=== PATIENT | male | born 1980 | race Caucasian/White ===

== ENCOUNTER → 2019-05-15 16:21 | Outpatient (BNVA) | payer BC, SELFPAY | PROVIDERS: Family Provider Family Medicine; Visit Provider Emergency Medicine | DX: J10.1 Influenza due to other identified influenza virus with other respiratory manifestations (principal) | CPT/HCPCS: 87804 ==

== ENCOUNTER 2022-08-15 13:28 | Outpatient (CLI) | payer OTHER, SELFPAY ==
--- NOTE | 2022-08-15 13:54 | XR_ITS ---
WS: [id number] CERVICAL SPINE 3 VIEWS HISTORY: NECK PAIN, CHRONIC COMPARISON: None available. Normal cervical alignment with no fracture or destructive process. Disc spaces and vertebral body heights are well-maintained. Small calcification in the posterior soft tissues at the C5 level. XR/XR cervical spine 3V* [id number] IMPRESSION: Unremarkable cervical spine radiographs. No fractures or disc space narrowing.
--- NOTE | 2022-08-15 16:10 | XR_ITS ---
WS: [id number] LUMBAR SPINE: 3 VIEWS TECHNIQUE: AP, lateral and L5-S1 spot. HISTORY: COCCYX PAIN COMPARISON: None available. Very mild LEFT curvature lumbar spine. Posterior alignment is normal. Disc space are preserved. No fracture. SI joints are symmetric bilaterally. No soft tissue abnormalities. XR/XR lumbar spine 2-3V* [id number] IMPRESSION: 1. Minimal curvature lumbar spine to the LEFT. 2. No fractures or significant disc space narrowing.
== END 2022-08-15 13:29 | disposition home or self-care (01) ==
PROVIDERS: Family Provider Family Medicine; PCP Nurse Practitioner Family; Visit Provider Nurse Practitioner Family
DX: M53.3 Sacrococcygeal disorders, not elsewhere classified (principal); M54.9 Dorsalgia, unspecified; M54.2 Cervicalgia; G89.29 Other chronic pain
CPT/HCPCS: 72040; 72100

== ENCOUNTER → 2022-08-17 11:55 | Outpatient (BNVA) | payer OTHER, SELFPAY | PROVIDERS: Family Provider Family Medicine; PCP Nurse Practitioner Family; Visit Provider Nurse Practitioner Family | DX: M53.3 Sacrococcygeal disorders, not elsewhere classified (principal) | CPT/HCPCS: 72220 ==

== ENCOUNTER 2023-05-23 12:21 | Emergency (ER) | payer BC, SELFPAY ==
--- NOTE | 2023-05-23 12:27 | XR_ITS ---
WS: [id number] Exam: XR chest 1V portable [id number] Date/Time of Exam: 05/23/2023 12:47 PM Reason For Exam: sob No priors. Findings: The lungs are clear and fully expanded. Costophrenic angles are sharp. No infiltrates. Bronchovascula r relief appears normal. Cardiac silhouette is unremarkable. Bony elements are intact. IMPRESSION: Unremarkable chest radiograph.
--- NOTE | 2023-05-23 12:27 | ECG_ITS ---
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 Measurements Intervals [place] Rate: 87 P: 61 CA: 116 QRS: 51 QRSD: 85 T: 44 QT: 356 QTc: 430 Interpretive Statements SINUS RHYTHM WITH SHORT CA INTERVAL No previous ECG available for comparison Electronically Signed On 05-23-2023 16:02:42 WEB ADMINISTRATOR by Bandar Duran M.D. [id number]
[2023-05-23 12:35] VITALS: BP 139/80; PULSE 84; RESP 18; TEMP 36.7; O2SAT 99; BMI 26.4
--- NOTE | 2023-05-23 12:42 | ED_ITS ---
HPI - Chest Pain 2 General: Chief Complaint: Chest Pain Stated Complaint: sent by dr chest pain, sob Time Seen by Provider: 05/23/23 12:40 Source: patient Mode of arrival: ambulatory History of Present Illness: 42-year-old male presents emergency room with a complaint of intermittent chest pain for last 2 weeks worse this morning. Chest pain at times radiates into the left arm. He is having spasm like discomfort. No vomiting no diarrhea no hemoptysis no hematochezia melena hematemesis cough cramps no fever sweats or chills. patient denies any history of coronary artery disease DVT or PE. Patient states it actually gets better when he is active MD complaint: chest pain Onset (ago): week(s) Timing of current episode: episodic Onset: during rest Pain location: substernal Pain radiation: left arm Severity: mild Quality: sharp Relieving factors: nothing Exacerbating factors: nothing Associated symptoms: Deny abdominal pain, diaphoresis, dyspnea, fever(s), leg edema, nausea, palpitations, sense of impending doom, syncope, vomiting or other Review of Systems 2 Const: Denies: fever(s) or diaphoresis Card: Reports: chest pain; Denies: palpitations or syncope Resp: Denies: dyspnea GI: Denies: abdominal pain, nausea or vomiting : Denies: dysuria, urinary frequency or urinary urgency Musc: Denies: neck pain or back pain Skin/Breast: Denies: rash PFSH ED 2 PFSH: Family History Denies family history of Diabetes Social History Smoking and tobacco/nicotine status: current every day tobacco/nicotine user smokeless tobacco Alcohol intake: current Substance/Drug Use: never Physical Exam 2 Const: COMMON NORMALS: no acute distress GENERAL APPEARANCE: cooperative and comfortable ORIENTATION/CONSCIOUSNESS: Yes awake, Yes oriented to person, Yes oriented to place and Yes oriented to time HENMT: COMMON NORMALS: normocephalic, atraumatic and hearing grossly normal bilaterally HEAD & SCALP: normocephalic and atraumatic Resp: COMMON NORMALS: normal respiratory effort, No retractions, No use of accessory muscles and clear to auscultation bilaterally AUSCULTATION: clear to auscultation bilaterally Cardio: COMMON NORMALS: regular rate, regular rhythm and No murmurs present (Cardio) RATE: regular rate RHYTHM: regular rhythm GI: COMMON NORMALS: Soft to palpation and No hepatosplenomegaly present A USCULTATION: Yes normoactive bowel sounds PALPATION: Yes Soft to palpation, No Tenderness to palpation present (GI), No Guarding due to palpation present (GI) and Yes No hepatosplenomegaly present Extremity: COMMON NORMALS: normal to inspection, capillary refill normal, no clubbing, cyanosis or edema, no calf tenderness and no pedal edema Neuro: SENSORIUM/ORIENTATION: Yes oriented to person, Yes oriented to place and Yes oriented to time Skin: COMMON NORMALS: no rashes or lesions noted GENERAL SKIN EXAM: no rashes or lesions noted Course 2 Vital Signs: Vital signs: Vital Signs Temperature 98.1 F 05/23/23 12:35 Pulse Rate 79 05/23/23 14:49 Respiratory Rate 18 05/23/23 12:35 Blood Pressure 118/83 05/23/23 14:49 Pulse Oximetry 94 05/23/23 14:49 Oxygen Delivery Me thod Room Air 05/23/23 14:49 MDM - Chest Pain Medical Decision Making D-dimer negative, patient oxygenating well no tachycardia chest x-ray unremarkable. Reviewed findings with the patient. No acute coronary syndrome no signs of pneumothorax PE no widening the mediastinum suggesting dissecting aneurysm. His liver enzymes are slightly elevated and he does have a bit of an anion gap although he feels fine he is actually hungry he is given fluids is feeling much better symptoms are resolved. He did state he drinks alcohol. This may be related to alcohol use especially given the anion gap although his platelets and sodium are normal. It is also possible is just reflux. He otherwise has no symptoms at this time will discharge home with graded exercise stress test and pantoprazole follow-up with primary care Medical Records I reviewed the patient's medical records. Lab Data I reviewed the patient's lab results. 05/23/23 12:44 05/23/23 12:44 Laboratory Results WBC 5.17 10^3/uL (3.29-11.43) 05/23/23 12:44 RBC 4.30 10^6/uL (3.85-5.65) 05/23/23 12:44 Hgb 14.60 g/dL (11.27-16.99) 05/23/23 12:44 Hct 43.1 % (37-53) 05/23/23 12:44 MCV 100.2 fl (82-101) 05/23/23 12:44 MCH 34.0 pg (27-33) H 05/23/23 12:44 MCHC 33.9 g/dL (30-55) 05/23/23 12:44 RDW 12.6 % (12.1-15.1) 05/23/23 12:44 Plt Count 156 10^3/cmm (157-399) L 05/23/23 12:44 MPV 8.4 fL (7.4-10.4) 05/23/23 12:44 Neut % (Auto) 62.2 % 05/23/23 12:44 Lymph % (Auto) 22.4 % 05/23/23 12:44 Davidson % (Auto) 12.2 % 05/23/23 12:44 Eos % (Auto) 1.4 % 05/23/23 12:44 Baso % (Auto) 1.4 % 05/23/23 12:44 Neut # (Auto) 3.22 10^3/uL (1.8-7.7) 05/23/23 12:44 Lymph # (Auto) 1.2 10^3/uL (0.8-4.8) 05/23/23 12:44 Davidson # (Auto) 0.6 10^3/uL (0.2-0.9) 05/23/23 12:44 Eos # (Auto) 0.1 10^3/uL (0.0-0.8) 05/23/23 12:44 Baso # (Auto) 0.1 10^3/uL (0.0-0.1) 05/23/23 12:44 Nucleated RBC % (auto) 0 % 05/23/23 12:44 Nucleated RBCs # 0.0 /100WBC 05/23/23 12:44 PT 12.40 SECONDS (12.1-14.9) 05/23/23 12:44 INR 0.90 (0.8-1.2) 05/23/23 12:44 D-Dimer 0.30 ug/mLFEU (0-0.59) 05/23/23 12:44 Sodium 139 mmol/L (136-145) 05/23/23 12:44 Potassium 4.2 mmol/L (3.5-5.1) 05/23/23 12:44 Chloride 97 mmol/L (98-107) L 05/23/23 12:44 Carbon Dioxide 21 mmol/L (22-29) L 05/23/23 12:44 Anion Gap 25.2 (5-19) H 05/23/23 12:44 BUN 9 mg/dL (6-20) 05/23/23 12:44 Creatinine 0.7 mg/dL (0.7-1.2) 05/23/23 12:44 GFR Calculation 123.7 mL/min (90-130) 05/23/23 12:44 Glucose 72 mg/dL (65-115) 05/23/23 12:44 Calculated Osmolality 285 mOsm/kg (285-295) 05/23/23 12:44 Calcium 9.2 mg/dL (8.5-10.5) 05/23/23 12:44 Total Bilirubin 0.7 mg/dL (0.15-1.2) 05/23/23 12:44 AST 181 U/L (0-40) H 05/23/23 12:44 ALT 62 U/L (0-41) H 05/23/23 12:44 Alkaline Phosphatase 63 U/L (40-130) 05/23/23 12:44 Troponin T Baseline < 6 ng/L (0-15) 05/23/23 12:44 Troponin T 120 Minute 6.00 ng/L (0-15) 05/23/23 14:34 Delta Troponin T 0.42134 ABS# (0-10) 05/23/23 14:34 NT-Pro-B Natriuret Pep 46 pg/mL (0-125) 05/23/23 12:44 Total Protein 7.2 g/dL (6.6-8.7) 05/23/23 12:44 Albumin 4.6 g/dL (3.5-5.2) 05/23/23 12:44 Globulin 2.6 g/dL (1.3-4.6) 05/23/23 12:44 Lipase 16 U/L (13-60) 05/23/23 12:44 All radiology interpretation(s) finalized by discharge Discharge Plan Discharge Patient Disposition: Home Clinical Impression: Atypical chest pain Condition: Stable Prescriptions: New pantoprazole 40 mg tablet,delayed release (DR/EC) 40 mg PO DAILY Qty: 30 0RF No Action gabapentin 300 mg capsule 300 mg PO QPM Discharge Orders: Discharge ED (Routine); Ordered 05/23/23 Ordered By: Zhao Mathew Referrals: Inés Zapata, DIGITAL PROJECT MANAGER [Primary Care Provider] - Discharge Diet: Usual diet Discharge Activity: Increase activity as tolerated Patient Instructions: Opioid Safety, Pain Management Activity Restrictions/Additional Instructions: Thank you for choosing [facility] for your healthcare needs today. Please realize this is an emergency room and that we are providing you with a medical screening exam and this may not be complete and all inclusive of all the testing and or work up that you may need to determine your ailment or severity of your illness. It is very important that you follow up as instructed or that you return to the Emergency Department should you have concerns or if your condition changes or worsens in any way. You were seen today for chest pain. By the history provided this been going on for some time. Your cardiac enzymes and EKG did not show any signs of acute coronary syndrome. D-dimer was done it was negative ruling out pulmonary embolism. Your chest x-ray appears normal. Suspect some of this may be due to to GI causes. Will start you on pantoprazole 40 mg once a day and also recommend that you have a graded exercise stress test. case management will call to schedule this. Coding Level of Care Code ED Facilities Custodian for Rojeloi Cabrera
[2023-05-23 12:52] LABS: Basophils # 0.1 10^3/uL (0.0-0.1); Basophils % 1.4 %; Eosinophils # 0.1 10^3/uL (0.0-0.8); Eosinophils % 1.4 %; Hematocrit 43.1 % (37-53); Lymphocytes # 1.2 10^3/uL (0.8-4.8); Lymphocytes % 22.4 %; Mean Corpuscular HGB Conc 33.9 g/dL (30-55); Mean Corpuscular Volume 100.2 fl (82-101); Mean Platelet Volume 8.4 fL (7.4-10.4); Monocytes # 0.6 10^3/uL (0.2-0.9); Monocytes % 12.2 %; Neutrophils # 3.22 10^3/uL (1.8-7.7); Neutrophils % 62.2 %; Nucleated Red Blood Cells % 0 %; Platelet Count 156 10^3/cmm (157-399); Red Cell Distribution Width 12.6 % (12.1-15.1); White Blood Count 5.17 10^3/uL (3.29-11.43)
[2023-05-23 13:02] VITALS: BP 117/78; PULSE 82; O2SAT 98
--- NOTE | 2023-05-23 13:07 | ECG_ITS ---
[facility] Test Date: 2023-05-23 Pat Name: Joshua Panchal Department: Room: Gender: Male Human Resource Manager: : 1980 Requested By: Zhao Lama Order Number: [id number] Mirtha MD: Bandar Duran M.D. Measurements Intervals [place] Rate: 82 P: 52 ID: 143 QRS: 57 QRSD: 88 T: 48 QT: 367 QTc: 431 Interpretive Statements SINUS RHYTHM Compared to ECG 05/23/2023 12:28:38 Short ID interval no longer present Electronically Signed On 05-23-2023 16:02:29 COMMERCIAL ACCOUNT OFFICER by Bandar Duran M.D. [email or web address].[place] WorkwearDigital Signalselect medical specialty hospital - trumbullCollective/store/NU/[id number] f
[2023-05-23 13:16] LABS: Troponin(5th) Baseline < 6 ng/L (0-15)
--- NOTE | 2023-05-23 13:16 | PC.PHAR ---
pt states he takes care of his own medications-pt states he has been taking gabapentin 300mg qpm ext shows last filled 300mg tid on 03/06/23 30d/s-pt states gabapentin is the only medication he has been taking pt states takes no otc medications
[2023-05-23 13:23] LABS: Alanine Aminotransferase 62 U/L (0-41); Albumin Level 4.6 g/dL (3.5-5.2); Alkaline Phosphatase 63 U/L (40-130); Anion Gap 25.2 (5-19); Aspartate Amino Transferase 181 U/L (0-40); Blood Urea Nitrogen 9 mg/dL (6-20); Calcium 9.2 mg/dL (8.5-10.5); Carbon Dioxide 21 mmol/L (22-29); Chloride 97 mmol/L (98-107); Creatinine Clr Calc Pharmacy 154.8812; Globulin 2.6 g/dL (1.3-4.6); Glomerular Filtration Rate 123.7 mL/min (90-130); Glucose 72 mg/dL (65-115); Lipase 16 U/L (13-60); NT Pro B Type Natriuretic Pept 46 pg/mL (0-125); Osmolality Calculated 285 mOsm/kg (285-295); Potassium 4.2 mmol/L (3.5-5.1); Sodium 139 mmol/L (136-145); Total Bilirubin 0.7 mg/dL (0.15-1.2); Total Protein 7.2 g/dL (6.6-8.7)
[2023-05-23 13:35] VITALS: BP 121/75; PULSE 73; O2SAT 94
[2023-05-23] MEDS: sodium chloride 0.9% 1,000 ML 999 ML IV ×2 (14:11→15:50)
[2023-05-23 14:13] VITALS: BP 131/76; PULSE 80; O2SAT 96
--- NOTE | 2023-05-23 14:27 | ECG_ITS ---
[facility] Test Date: 2023-05-23 Pat Name: Joshua Panchal Department: Room: Gender: Male Endodontist: : 1980 Requested By: Selina Delgado Order Number: [id number] Mirtha MD: Bandar Duran M.D. Measurements Intervals [place] Rate: 82 P: 45 [place]: 123 QRS: 50 QRSD: 82 T: 47 QT: 377 QTc: 443 Interpretive Statements SINUS RHYTHM Compared to ECG 05/23/2023 13:07:47 No significant changes Electronically Signed On 05-23-2023 16:03:20 COUNSELOR SUPERVISOR by Bandar Duran M.D. [email or web address]/store/[id number]
[2023-05-23 14:49] VITALS: BP 118/83; PULSE 79; O2SAT 94
[2023-05-23 15:04] LABS: Troponin 5 2HR Delta 0.00001 ABS# (0-10)
== END 2023-05-23 16:10 | disposition home or self-care (01) ==
PROVIDERS: Emergency Medicine; Emergency Provider Family Medicine; PCP Nurse Practitioner Family
DX: R07.89 Other chest pain (principal); F17.220 Nicotine dependence, chewing tobacco, uncomplicated
CPT/HCPCS: 36415; 71045; 80053; 83690; 83880; 84484; 85025; 85378; 85610; 93005; 96360; 99285; J7030

== ENCOUNTER → 2023-06-09 12:23 | Outpatient (BNVA) | payer BC, SELFPAY | PROVIDERS: PCP Nurse Practitioner Family; Visit Provider Psychiatry & Neurology Neurology | DX: M62.838 Other muscle spasm (principal); M62.40 Contracture of muscle, unspecified site; R07.9 Chest pain, unspecified | CPT/HCPCS: 36415; 82607; 82652; 82746; 83735; 83921; 84439; 84443; 84481 ==

== ENCOUNTER 2023-07-13 07:06 | Outpatient (CLI) | payer BC, SELFPAY ==
--- NOTE | 2023-07-13 07:15 | MR_ITS ---
WS: [id number] MRI BRAIN WITHOUT CONTRAST HISTORY: R25.2 - Cramp and spasm COMPARISON: None available. TECHNIQUE: Diffusion imaging, multiplanar T1, T2 and FLAIR imaging obtained. Patient declined IV contrast evaluation. No evidence for acute infarct or hemorrhage. Limon-white matter differentiation is normal. No remote or acute infarcts are volume loss. No hippocampal atrophy. Ventricles and extra-axial spaces are normal. No inferior displacement of cerebellar tonsils. The sella turcica and pituitary gland are unremarkabl e. Dural venous sinuses and [place] demonstrate no abnormality on this unenhanced studies. Paranasal sinuses: Clear. Mastoid air cells: Normal. Calvarium and scalp: Intact. IMPRESSION: 1. Unremarkable noncontrast MRI brain.
--- NOTE | 2023-07-13 08:00 | MR_ITS ---
WS: [id number] MRI CERVICAL SPINE NONCONTRAST HISTORY: R25.2 - Cramp and spasm COMPARISON: None available. Technique: Multiplanar, multisequence noncontrast imaging of the cervical spine. Normal cervical alignment with no compression fracture or significant disc space narrowing. Signal within the cervical cord is normal. Visualized posterior fossa is unremarkable. Craniocervical junction, C1 and C2 relationship, odontoid process and soft tissues are normal. C2-C3: Normal. C3-C4: Normal. C4-C5: Normal. C5-C6: Normal. C6-C7: Normal. C7-T1: Normal. Paraspinal soft tissue are normal. IMPRESSION: Normal MRI C-spine.
== END 2023-07-13 07:07 | disposition home or self-care (01) ==
LOC: RAD 07:06
PROVIDERS: PCP Nurse Practitioner Family; Visit Provider Psychiatry & Neurology Neurology
DX: R25.2 Cramp and spasm (principal)
CPT/HCPCS: 70551; 72141

== ENCOUNTER 2023-09-07 11:44 | Outpatient (CLI) | payer BC, SELFPAY ==
[2023-09-07 12:00] VITALS: BMI 25.7
--- NOTE | 2023-09-07 12:02 | USCV_ITS ---
Joshau Panchal Age: 43 Gender: M : 1980 Exam Date: 09/07/2023 12:12 Ordering Phys: Panfilo Delcid MD ([email or web address]) Technologist: Exam [place] [facility] [place]: cp Rhythm: Sinus Patient History: Cardiac Medications: Medications in past 24 hours: Contrast: Stress Results Protocol: Anurag Total dose(mL): Exercise Duration (min:sec): 6:36 METS: 10.2 Resting HR: 87 Resting BP: 123 / 80 Peak HR: 154 Peak BP: 172 / 96 Max Predicted HR: 177 87 % Max Predicted HR Target HR: 150 Double Product: 81174 Stress Summary: The patient's target heart rate was achieved BP Response: Normal Reason for Termination: Maximal effort/unable to continue Cardiac Symptoms: None ECG Analysis Resting ECG: Normal sinus rhythm with no significant ST T wave changes Stress ECG: Sinus tachycardia. Occasional PVCs. No significant ST T wave changes Arrhythmia: PVCs MEASUREMENTS (Male/Female) Normal Values FINDINGS At baseline LV systolic function is normal. No regional wall motion abnormalities are seen. Left ventricular ejection fraction appears to be 55 to 60%. At exercise patient did reach target heart rate however by time of obtaining images, maximum heart rate was 146 bpm which is 4 beats less than target heart rate. At this heart rate no regional wall motion abnormalities suggesting ischemia are noted. However this does decrease sensitivity of the test. CONCLUSIONS Baseline LV systolic function is normal with EF 55 to 60%. Although patient reached target heart rate, by the time of obtaining images, heart rate had decreased to 146 bpm. This is 4 beats less than target heart rate. At this rate no regional wall motion abnormality suggestive of ischemia seen. This does decrease sensitivity of the test however no evidence of ischemia is seen. Clinical correlation is recommended. EKG portion of stress test does not reveal ischemia Bandar Duran MD (Electronically Signed) Final Date: 11 September 2023 00:06 S
--- NOTE | 2023-09-07 12:03 | ECG_ITS ---
[facility] Test Date: 2023-09-07 Pat Name: Joshua Panchal Department: Room: Gender: Male Extract Puller: : 1980 Requested By: Panfilo Delcid Order Number: [id number] Shannon MD: Bandar Duran M.D. Interpretive Statements NAME OF STUDY: TREADMILL STRESS ECHOCARDIOGRAM INDICATION: [Chest Pain, ] EXERCISE DATA: The patient was exercised by Anurag protocol. Baseline heart rate was 87 beats per minute. Baseline blood pressure was 123/80 millimeters of mercury. Maximal predicted heart rate was 177 beats per minute. Maximum heart rate achieved was 154, which was 87% of the maximum predicted heart rate. Maximum blood pressure was 156/48 millimeters of mercury. Total exercise time was 6 minutes and 36 seconds. Maximum METs achieved was 10.2. The reason for ending the test was maximal effort achieved. The patient complained of shortness of breath during the stress test, which then resolved at the end of the test. ELECTROCARDIOGRAM: BASELINE: Showed sinus rhythm, normal axis, no significant ST-T changes at the baseline noted. [] EXERCISE: At the peak exercise level, [] No significant ST-T changes suggestive of ischemia noted. Occasional PVCs are seen [] RECOVERY: During the recovery period, heart rate dropped appropriately. No significant ST-T changes in the recovery suggestive of ischemia noted. [] CONCLUSION: 1. Exercise capacity is good. 2. Heart rate response was appropriate 3. Blood pressure response was appropriate 4. Symptoms not suggestive of ischemia. 5. Electrocardiogram portion of the stress test was not suggestive of ischemia. 6. ECHO stress test result will be documented separately. Electronically Signed On 09-11-2023 0:07:13 CDT by Bandar Duran M.D. [email or web address] TechnologiesYapmoascension providence hospital.[employer]/store/OM/[id number]
[2023-09-07 12:56] VITALS: BP 135/66; PULSE 88
== END 2023-09-07 11:45 | disposition home or self-care (01) ==
PROVIDERS: PCP Nurse Practitioner Family; Visit Provider Internal Medicine Cardiovascular Disease
DX: R07.9 Chest pain, unspecified (principal)
CPT/HCPCS: 93017; 93350

== ENCOUNTER 2024-04-16 06:49 | Emergency (ER) | payer BC, MEDICAID, SELFPAY ==
[2024-04-16 07:06] VITALS: BP 141/83; PULSE 84; RESP 16; TEMP 36.6; O2SAT 100; BMI 26.4
[2024-04-16 07:15] VITALS: O2SAT 98
--- NOTE | 2024-04-16 07:25 | W.ED.GENADLT ---
HPI - General Adult General: Chief complaint: General Medical Stated complaint: physical eval Time Seen by Provider: 04/16/24 07:04 History of Present Illness: 43-year-old male presents emergency room complaining of tremor. Patient quit taking gabapentin 2 weeks ago. He was on 300 mg 3 times a day. He been on that to manage chronic low back pain. He is about 6 weeks out from a lumbar back surgery. Patient is a heavy drinker it is difficult to get him to quantify but he states he drinks 6-8 beers per day and then often a half of 1/5 sometimes in addition to the beers sometimes in isolation. He states he is cut back a little. Initially told me he had drank through the weekend and did not drink anything at all yesterday but then admitted that he had a couple shots yesterday when he began to have some tremors. He has not had any seizure-like activity. States he has had some loose stools no vomiting. Associated symptoms: Deny chest pain, dyspnea or rash Related Data Home Medications Medication Instructions Recorded Confirmed multivitamin (Multiple Vitamins 1 tab PO DAILY 08/23/23 04/16/24 tablet) diclofenac sodium 75 mg See Rx Instructions .Route .COMPLEX 04/16/24 04/16/24 tablet,delayed release hydrocodone 5 mg-acetaminophen 325 See Rx Instructions .Route .COMPLEX 04/16/24 04/16/24 mg tablet Allergies Allergy/AdvReac Type Severity Reaction Status Date / Time No Known Allergies Allergy Verified 08/23/23 12:00 Review of Systems Const: Denies: fever(s) or chills Card: Denies: chest pain Resp: Denies: dyspnea GI: Denies: abdominal pain : Denies: dysuria, urinary frequency or urinary urgency Musc: Denies: neck pain or back pain Skin/Breast: Denies: rash PFSH ED PFSH: Family History Denies family history of Diabetes CAD (coronary artery disease) Cancer Hypertension Social History Smoking and tobacco/nicotine status: former use of tobacco/nicotine Alcohol intake: current Substance/Drug Use: never Physical Exam Const: GENERAL APPEARANCE: cooperative ORIENTATION/CONSCIOUSNESS: Yes awake, Yes oriented to person, Yes oriented to place and Yes oriented to time HENMT: COMMON NORMALS: normocephalic, atraumatic and hearing grossly normal bilaterally HEAD & SCALP: normocephalic and atraumatic Resp: COMMON NORMALS: normal respiratory effort, No retractions, No use of accessory muscles and clear to auscultation bilaterally AUSCULTATION: clear to auscultation bilaterally Cardio: COMMON NORMALS: regular rate, regular rhythm and No murmurs present (Cardio) RATE: regular rate RHYTHM: regular rhythm GI: COMMON NORMALS: Soft to palpation and No hepatosplenomegaly present AUSCULTATION: Yes normoactive bowel sounds PALPATION: Yes Soft to palpation, No Tenderness to palpation present (GI), No Guarding due to palpation present (GI) and Yes No hepatosplenomegaly present Extremity: COMMON NORMALS: normal to inspection, capillary refill normal, no clubbing, cyanosis or edema, no calf tenderness and no pedal edema Neuro: SENSORIUM/ORIENTATION: Yes oriented to person, Yes oriented to place and Yes oriented to time OTHER: Mild tremor in the hands noted. Skin: COMMON NORMALS: no rashes or lesions noted GENERAL SKIN EXAM: no rashes or lesions noted Course Vital Signs: Vital signs: Vital Signs Temperature 98 F 04/16/24 07:06 Pulse Rate 76 04/16/24 10:24 Respiratory Rate 16 04/16/24 08:24 Blood Pressure 138/78 04/16/24 10:24 Pulse Oximetry 93 04/16/24 10:24 Oxygen Delivery Me thod Room Air 04/16/24 08:48 MDM - General Adult Medical Decision Making Patient is 2 weeks from last gabapentin and all believe he is withdrawing from not anymore. Believe he is withdrawing a little bit from alcohol and is getting some tremor. He did respond well to Ativan given. Discussing the patient he wants something so he can decrease the amount he drinks without stopping. He is requesting medications to help him decrease the total amount he drinks but does not plan on stopping drinking. Discussed with him that given his history of very heavy drinking for over a very extended period of time that unsupervised this would be a poor option. Additionally clinically it is unlikely to be able to maintain a lower level of alcohol intake. Not comfortable prescribing outpatient Librium or Ativan to him on a tapering dose given his plan to continue drinking. Discussed the reasoning with this for him. Recommend that he follow-up with [facility] or [facility] to discuss treatment options that can be monitored appropriately. At this time he does not have any acute emergent condition. His anion gap is slightly elevated. His T. bili and transaminases are also elevated I think this is from his alcohol use. Does not require acute intervention at this time. Strongly encourage patient to refrain from drinking or pursue subcut assistance either through [facility] or [facility] to achieve sobriety. Lab Data 04/16/24 08:21 04/16/24 08:21 Laboratory Results WBC 4.93 10^3/uL (3.29-11.43) 04/16/24 08: RBC 4.37 10^6/uL (3.85-5.65) 04/16/24 08:21 Hgb 15.60 g/dL (11.27-16.99) 04/16/24 08:21 Hct 44.8 % (37-53) 04/16/24 08:21 MCV 102.5 fl (82-101) H 04/16/24 08:21 MCH 35.7 pg (27-33) H 04/16/24 08:21 MCHC 34.8 g/dL (30-55) 04/16/24 08:21 RDW 13.0 % (12.1-15.1) 04/16/24 08:21 Plt Count 151 10^3/cmm (157-399) L 04/16/24 08:21 MPV 8.4 fL (7.4-10.4) 04/16/24 08:21 Neut % (Auto) 72.0 % 04/16/24 08:21 Lymph % (Auto) 12.4 % 04/16/24 08:21 [place] % (Auto) 13.8 % 04/16/24 08:21 Eos % (Auto) 0.4 % 04/16/24 08: Baso % (Auto) 1.0 % 04/16/24 08: Neut # (Auto) 3.55 10^3/uL (1.8-7.7) 04/16/24 08:21 Lymph # (Auto) 0.6 10^3/uL (0.8-4.8) L 04/16/24 08:21 [place] # (Auto) 0.7 10^3/uL (0.2-0.9) 04/16/24 08:21 Eos # (Auto) 0.0 10^3/uL (0.0-0.8) 04/16/24 08:21 Baso # (Auto) 0.1 10^3/uL (0.0-0.1) 04/16/24 08:21 Nucleated RBC % (auto) 0 % 04/16/24 08:21 Nucleated RBCs # 0.0 /100WBC 04/16/24 08:21 PT 11.70 SECONDS (12.1-14.9) L 04/16/24 08:21 INR 0.80 (0.8-1.2) 04/16/24 08:21 Sodium 139 mmol/L (136-145) 04/16/24 08:21 Potassium 4.3 mmol/L (3.5-5.1) 04/16/24 08:21 Chloride 99 mmol/L (98-107) 04/16/24 08:21 Carbon Dioxide 23 mmol/L (22-29) 04/16/24 08:21 Anion Gap 21.3 (5-19) H 04/16/24 08:21 BUN 8 mg/dL (6-20) 04/16/24 08:21 Creatinine 0.6 mg/dL (0.7-1.2) L 04/16/24 08:21 GFR Calculation 147.0 mL/min (90-130) H 04/16/24 08:21 Glucose 99 mg/dL (65-115) 04/16/24 08:21 Calculated Osmolality 286 mOsm/kg (285-295) 04/16/24 08:21 Calcium 9.6 mg/dL (8.5-10.5) 04/16/24 08:21 Total Bilirubin 1.3 mg/dL (0.15-1.2) H 04/16/24 08:21 AST 49 U/L (0-40) H 04/16/24 08:21 ALT 21 U/L (0-41) 04/16/24 08:21 Alkaline Phosphatase 86 U/L (40-130) 04/16/24 08:21 Ammonia 26 umol/L (16-60) 04/16/24 09:42 Total Protein 7.1 g/dL (6.6-8.7) 04/16/24 08:21 Albumin 4.4 g/dL (3.5-5.2) 04/16/24 08:21 Globulin 2.7 g/dL (1.3-4.6) 04/16/24 08:21 Urine Color [place] (Yellow) A 04/16/24 07:52 Urine Appearance Clear (CLEAR) 04/16/24 07:52 Urine pH 5.5 (5-7) 04/16/24 07:52 Ur Specific [place] 1.023 (1.005-1.030) 04/16/24 07:52 Urine Protein 1+ (Negative) A 04/16/24 07:52 Urine Glucose (UA) Negative (Normal) 04/16/24 07:52 Urine Ketones 2+ (Negative) H 04/16/24 07:52 Urine Blood Negative (Negative) 04/16/24 07:52 Urine Nitrate Negative (Negative) 04/16/24 07:52 Urine Bilirubin 2+ (Negative) H 04/16/24 07:52 Urine Urobilinogen 1.0 mg/dL (Negative) 04/16/24 07:52 Ur Leukocyte Esterase Trace (Negative) A 04/16/24 07:52 Urine RBC 0-2 /hpf (0-2) 04/16/24 07:52 Urine WBC 0-5 /hpf (0-5) 04/16/24 07:52 Ur Squamous Epith Cells 0-5 /hpf (0-5) 04/16/24 07:52 Amorphous Sediment Not Reportable 04/16/24 07:52 Urine Bacteria None seen /hpf (NONE) 04/16/24 07:52 Hyaline Casts 3.71 /lpf 04/16/24 07:52 Urine Opiates Screen Positive ng/mL (Negative) H 04/16/24 07:52 Ur Barbiturates Screen Negative ng/mL (Negative) 04/16/24 07:52 Ur Phencyclidine Scrn Negative ng/mL (Negative) 04/16/24 07:52 Ur Amphetamines Screen Negative ng/mL (Negative) 04/16/24 07:52 U Benzodiazepines Scrn Negative ng/mL (Negative) 04/16/24 07:52 Urine Cocaine Screen Negative ng/mL (Negative) 04/16/24 07:52 U Marijuana (THC) Screen Negative ng/mL (Negative) 04/16/24 07:52 Ethyl Alcohol < 10 mg/dL (0-10) 04/16/24 08:21 No radiology studies performed this visit Discharge Plan Discharge Patient Disposition: Home Clinical Impression: Alcohol abuse, Chronic back pain Condition: Stable Prescriptions: No Action multivitamin [Multiple Vitamins] Tablet 1 tab PO DAILY diclofenac sodium 75 mg Tablet,Delayed Release (Dr/Ec) See Rx Instructions .ROUTE .COMPLEX Rx Instructions: Take 2tablet by mouth tid for 5 days, then 1tablet by mouth daily till gone. hydrocodone-acetaminophen 5-325 mg tablet See Rx Instructions .ROUTE .COMPLEX Rx Instructions: TAKE 1 - 2 tabLETS BY MOUTH EVERY 4TO6 HOURS NEEDED Discharge Orders: Discharge ED (Routine); Ordered 04/16/24 Ordered By: Zhao Mathew Discharge Diet: Usual diet Discharge Activity: Increase activity as tolerated Patient Instructions: Abuse of Alcohol (ED), Opioid Safety, Pain Management Activity Restrictions/Additional Instructions: Thank you for choosing [facility] for your healthcare needs today. It is very important that you follow up as instructed or that you return to the Emergency Department should you have concerns or if your condition changes or worsens in any way. Strongly recommend that you establish with a primary care physician. You have changes in your lab work consistent with regular alcohol use. When you presented to the ER you did have tremors that are likely from withdrawal from alcohol. These improved with Ativan. You expressed the plan to continue to drink under those conditions it is not safe for us to prescribe medicines for you for withdrawal. At this point your best option would be to be seen at behavioral health clinic and they can assist you with achieving sobriety. Coding Level of Care Code ED Benefits Representative for Rojelio Cabrera
[2024-04-16] MEDS: LORazepam 2 mg Tablet PO (08:05)
[2024-04-16 08:16] LABS: Bilirubin Urine 2+ (Negative); Blood Urine Negative (Negative); Glucose Urine UA Negative (Normal); Ketones Urine 2+ (Negative); Leukocyte Esterase Urine Trace (Negative); Nitrate Urine Negative (Negative); Protein Urine 1+ (Negative); Specific Gravity, Urine 1.023 (1.005-1.030); Urine Appearance Clear (CLEAR); pH Urine 5.5 (5-7)
[2024-04-16 08:21] LABS: Add Urine Microscopic? YES; Amphetamines Screen Urine Negative (Negative); Bacteria Urine None Seen /hpf; Barbiturates Screen Urine Negative (Negative); Benzodiazepines Screen Urine Negative (Negative); Cocaine Screen Urine Negative (Negative); Hyaline Casts Urine 3.71 /lpf; Opiate Screen Urine Positive (Negative); PCP Screen Urine Negative (Negative); RBC Urine 0-2 /hpf (0-2); Squamous Epithelial Cell Urine 0-5 /hpf (0-5); THC Screen Urine Negative (Negative); WBC Urine 0-5 /hpf (0-5)
[2024-04-16 08:24] VITALS: BP 131/88; PULSE 82; RESP 16; O2SAT 99
[2024-04-16 08:31] LABS: Basophils # 0.1 10^3/uL (0.0-0.1); Eosinophils % 0.4 %; Hematocrit 44.8 % (37-53); Lymphocytes # 0.6 10^3/uL (0.8-4.8); Lymphocytes % 12.4 %; Mean Corpuscular HGB Conc 34.8 g/dL (30-55); Mean Corpuscular Hemoglobin 35.7 pg (27-33); Mean Corpuscular Volume 102.5 fl (82-101); Mean Platelet Volume 8.4 fL (7.4-10.4); Monocytes # 0.7 10^3/uL (0.2-0.9); Monocytes % 13.8 %; Neutrophils # 3.55 10^3/uL (1.8-7.7); Nucleated Red Blood Cells % 0 %; Platelet Count 151 10^3/cmm (157-399); Red Blood Count 4.37 10^6/uL (3.85-5.65); White Blood Count 4.93 10^3/uL (3.29-11.43)
[2024-04-16 08:40] LABS: Urine Color Orange (Yellow)
[2024-04-16 08:48] VITALS: PULSE 81; O2SAT 97
[2024-04-16 08:50] LABS: Alanine Aminotransferase 21 U/L (0-41); Albumin Level 4.4 g/dL (3.5-5.2); Alkaline Phosphatase 86 U/L (40-130); Aspartate Amino Transferase 49 U/L (0-40); Blood Urea Nitrogen 8 mg/dL (6-20); Calcium 9.6 mg/dL (8.5-10.5); Carbon Dioxide 23 mmol/L (22-29); Chloride 99 mmol/L (98-107); Creatinine Clr Calc Pharmacy 178.8509; Globulin 2.7 g/dL (1.3-4.6); Glucose 99 mg/dL (65-115); Osmolality Calculated 286 mOsm/kg (285-295); Sodium 139 mmol/L (136-145); Total Bilirubin 1.3 mg/dL (0.15-1.2); Total Protein 7.1 g/dL (6.6-8.7)
[2024-04-16 08:53] LABS: Alcohol Level < 10 mg/dL (0-10); Anion Gap 21.3 (5-19); Potassium 4.3 mmol/L (3.5-5.1)
[2024-04-16 10:04] LABS: Ammonia 26 umol/L (16-60)
[2024-04-16 10:24] VITALS: BP 138/78; PULSE 76; O2SAT 93
== END 2024-04-16 10:28 | disposition home or self-care (01) ==
PROVIDERS: Emergency Provider Family Medicine
DX: F10.10 Alcohol abuse, uncomplicated (principal); M54.9 Dorsalgia, unspecified; Z87.891 Personal history of nicotine dependence
CPT/HCPCS: 36415; 80053; 80306; 80307; 81001; 82140; 85025; 85610; 99283